=== PATIENT | female | born 1990 | race Caucasian/White ===

== ENCOUNTER 2017-08-14 23:19 | Emergency (ER) | payer MEDICAID ==
[2017-08-14 23:57] VITALS: BMI 30.9
[2017-08-15 00:38] LABS: RBC URINE < 1 /hpf (0-3); URINE BILIRUBIN NEGATIVE (NEGATIVE); URINE BLOOD NEGATIVE (NEGATIVE); URINE COLOR Straw (YELLOW); URINE GLUCOSE (UA) NORMAL (Normal); URINE KETONE NEGATIVE (NEGATIVE); URINE LEUKOCYTE ESTERASE NEG Leu/uL (Negative); URINE PROTEIN NEGATIVE (NEGATIVE); URINE UROBILINOGEN NORMAL mg/dL (0.2-1.0); WBC URINE < 1 /hpf (0-5)
--- NOTE | 2017-08-15 01:52 | OBHP ---
Datetime: 08/15/2017 01:41 IP Chief Complaint Other: back pain and abdominal pain IP Adm Impression Other: constipation IP Admit Plan: Discharge home Admit Comment, IP Provider: chief complaint-abdominal pain HPI 26 y/o at 32 weeks and 1 day with c/o abdominal pain and back pain .denies any urianry sy mptoms.Staates that she feels rectal presure but when she tries to have bowel movement she has more d iscomfort and not able to have a bowel movement.deniea any rectal or vaginal bleeding.Pain inabdoemn moves from one location to another course uncomplicated; pnc with dr patricia PMH denies PSH denies OBGYN HX Social hx denies tobacco,alcohol or illcit drug use Exam see exam section UA nge for nitrites and LE A/P 26 y/o at 32 weeks and 1 day with c/o abdominal discomfort.cervix closed.Constipation -patient advsied to use colace; simethicone prn gas pain -follow up wt dr patricia this wek -bleeding precauions given Extremities - PN: Normal Abdomen - PN: Normal Back - PN: Normal Lungs - PN: Normal Heart - PN: Normal Neurologic - PN: Normal General - PN: Normal Contraction Comments Provider: none EGA AdmitDate IP: 32.1 Vital Signs Provider: Reviewed; Within Normal Limits IP Chief Complaint: Other FHR Category Provider Fetus A: Category I Genitourinary Exam: Normal
[2017-08-15 06:58] VITALS: BP 110/65; PULSE 81; RESP 16; TEMP 98.1
== END 2017-08-15 01:45 | disposition home or self-care (01) ==
LOC: C.EROB 23:19
DX: O26.893 Other specified pregnancy related conditions, third trimester (principal); K59.00 Constipation, unspecified; R10.9 Unspecified abdominal pain; Z3A.32 32 weeks gestation of pregnancy